=== PATIENT | male | born 1980 | race Two or more races ===

== ENCOUNTER 2024-03-28 12:26 | Emergency (ER) | payer OTHER ==
[~2024-03-28] VITALS: Ht 175.3 cm; Wt 104.3 kg
[2024-03-28] MEDS ORDERED: JENTADUETO 2.51 EAC2 PO (13:25)
[2024-03-28] MEDS ORDERED: ENALAPRILAT DIHYDRATE 1.25 MG/ML VIAL IV STA (13:47)
[2024-03-28] MEDS ORDERED: ACETAMINOPHEN 500 MG GEL..CAP PO STA (13:48)
[2024-03-28] MEDS ORDERED: ACETAMINOPHEN 500 MG GEL..CAP PO ONE (13:57)
[2024-03-28] MEDS ORDERED: ENALAPRILAT DIHYDRATE 1.25 MG/ML VIAL IV ONE (13:57)
[2024-03-28 14:38] LABS: HEMOGLOBIN 14.7 g/dL (13-16.00); MEAN CELL VOLUME 75.1 fL (80.0-100.00); MEAN CORPUSCULAR HEMOGLOBIN 25.8 pg (27.00-32.0); MEAN CORPUSCULAR HGB CONC 34.3 g/dl (32.0-36.0); PLATELET COUNT 214 K/uL (150-450); RED BLOOD COUNT 5.73 M/uL (4.00-6.00); RED CELL DISTRIBUTION WIDTH 13.6 % (11.5-14.5)
[2024-03-28 14:49] LABS: CALCIUM 9.3 mg/dL (8.5-10.1); CREATININE SERUM 0.75 mg/dL (0.70-1.30); GFR 114.77; POTASSIUM 4.01 mEq/L (3.5-5.1)
== END 2024-03-28 17:50 | disposition home or self-care (01) ==
LOC: ER 12:28
PROVIDERS: General Practice
DX: G44.89 Other headache syndrome (principal); E11.9 Type 2 diabetes mellitus without complications; E78.00 Pure hypercholesterolemia, unspecified; I10 Essential (primary) hypertension